=== PATIENT | female | born 1960 | race Caucasian/White ===

== ENCOUNTER 2016-10-07 13:11 | Inpatient (IN) | payer MEDICAID ==
[~2016-10-07] VITALS: Ht 162.6 cm; Wt 81.9 kg
[~2016-10-07 13:11] MED LIST: ALBU8HFA4 IH; MELO-273 PO; OLAN7.5T2 PO
[2016-10-07 14:35] VITALS: BP 109/74
[2016-10-07] MEDS ORDERED: LORazepam 2 MG TABLET PO PRN (14:45)
[2016-10-07] MEDS ORDERED: HALOPERIDOL 5 MG TABLET PO PRN (14:45)
[2016-10-07] MEDS ORDERED: ZOLPIDEM TARTRATE 10 MG TABLET PO PRN (14:45)
[2016-10-07 16:14] VITALS: BP 116/70
[2016-10-07] MEDS ORDERED: RisperiDONE 2 MG TABLET PO SCH (17:00)
[2016-10-07] MEDS: NICOTINE 21 MG/24 HOUR PATCH TD SCH (18:03)
[2016-10-07] MEDS ORDERED: IBUPROFEN 400 MG TABLET PO PRN (19:15)
[2016-10-07] MEDS: OLANZapine 7.5 MG TABLET PO SCH (21:15)
[2016-10-08] MEDS ORDERED: -PHARMACY VACCINE NOTE- MISC ONE ×2 (02:15)
[2016-10-08 04:55] VITALS: BP 112/67
[2016-10-08 08:31] LABS: ALANINE AMINOTRANSFERASE 72 U/L (12-78); ALBUMIN 3.6 g/dL (3.4-5.0); ANION GAP 8 mmol/L (8-16); ASPARTATE AMINOTRANSFERASE 47 U/L (15-37); BILIRUBIN,TOTAL 0.5 mg/dL (0.1-1.0); CALCIUM, TOTAL 9.3 mg/dL (8.8-10.5); CARBON DIOXIDE 30 mmol/L (22-29); CHLORIDE 107 mmol/L (98-107); CREATININE 0.87 mg/dL (0.60-1.30); GLOMERULAR FILTR. RATE CALC > 60 mL/min (>60); POTASSIUM 4.3 mmol/L (3.5-5.1); SODIUM SERUM 145 mmol/L (136-145); TOTAL PROTEIN, SERUM 7.5 g/dL (6.4-8.2); UREA NITROGEN, BLOOD 12 mg/dL (7-18)
[2016-10-08] MEDS: NICOTINE 21 MG/24 HOUR PATCH TD SCH (08:31)
[2016-10-08 08:36] LABS: BASOPHILS % (AUTO) 0.9 % (0.0-2.0); EOSINOPHILS % (AUTO) 2.4 % (1.0-6.0); HEMATOCRIT 48.3 % (36-46); HEMOGLOBIN 15.3 g/dL (12.0-16.0); LYMPHOCYTES % (AUTO) 32.7 % (22.0-44.0); MEAN CORPUSCULAR HEMOGLOBIN 30.6 pg (26.0-34.0); MEAN CORPUSCULAR HGB CONC 31.7 G/dL (31.0-37.0); MEAN CORPUSCULAR VOLUME 97 fL (80-100); MONOCYTES # (AUTO) 0.9 K/uL (0.1-1.0); MONOCYTES % (AUTO) 7.4 % (2.0-9.0); NEUTROPHILS % (AUTO) 56.6 % (40.0-70.0); PLATELET COUNT (AUTO) 294 K/uL (150-450); RED CELL DISTRIBUTION WIDTH 14.4 % (11.5-14.5); WHITE BLOOD COUNT (AUTO) 12.4 K/uL (4.5-11.0)
[2016-10-08 08:41] LABS: APPEARANCE,URINE CLEAR (CLEAR); GLUCOSE, URINE (UA) NEGATIVE (NEGATIVE); KETONES,URINE NEGATIVE (NEGATIVE); LEUKOCYTE ESTERASE ,URINE NEGATIVE (NEGATIVE); OCCULT BLOOD,URINE NEGATIVE (NEGATIVE); PH,URINE 6.5 (5.0-8.0); PROTEIN,URINE NEGATIVE (NEGATIVE)
[2016-10-08 08:42] LABS: ADD UA MICROSCOPIC NO
[2016-10-08] MEDS ORDERED: RisperiDONE 2 MG TABLET PO SCH (09:00)
[2016-10-08 09:30] VITALS: BP 100/68
[2016-10-08 17:50] VITALS: BP 108/76
[2016-10-08] MEDS: OLANZapine 7.5 MG TABLET PO SCH (20:22)
[2016-10-09 01:15] VITALS: BP 109/66
[2016-10-09 08:31] VITALS: BP 108/72
[2016-10-09] MEDS: NICOTINE 21 MG/24 HOUR PATCH TD SCH (08:33)
[2016-10-09 16:00] VITALS: BP 109/62
[2016-10-09] MEDS: OLANZapine 7.5 MG TABLET PO SCH (21:27)
[2016-10-10 05:20] VITALS: BP 112/69
[2016-10-10] MEDS: NICOTINE 21 MG/24 HOUR PATCH TD SCH (09:48)
[2016-10-10 13:30] VITALS: BP 120/72
[2016-10-10 16:00] VITALS: BP 100/66
[2016-10-10 16:35] VITALS: BP 100/66
[2016-10-10] MEDS: OLANZapine 7.5 MG TABLET PO SCH (20:28)
[2016-10-11 06:58] VITALS: BP 107/67
[2016-10-11 08:08] VITALS: BP 116/62
[2016-10-11] MEDS: NICOTINE 21 MG/24 HOUR PATCH TD SCH (08:15)
[2016-10-11] MEDS ORDERED: DOCUSATE SODIUM 100 MG CAPSULE PO SCH (09:00)
[2016-10-11 11:58] VITALS: BP 110/68
[2016-10-11 16:00] VITALS: BP 111/71
[2016-10-11] MEDS: OLANZapine 7.5 MG TABLET PO SCH (20:31)
[2016-10-11] MEDS: LevETIRAcetam 250 MG TABLET PO SCH ×2 (21:06→21:53)
[2016-10-12 04:41] VITALS: BP 102/68
[2016-10-12] MEDS ORDERED: DSS100 PO (04:41)
[2016-10-12] MEDS ORDERED: LEVE250T55 PO (04:41)
[2016-10-12] MEDS ORDERED: OLAN7.5T2 PO (04:41)
== END 2016-10-12 07:05 | disposition home or self-care (01) | DRG 750 ==
LOC: B2S 15:23 → EDSTATUS 15:38 → B2S 10-08 17:43
PROVIDERS: ADMIT Psychiatry & Neurology Psychiatry; ATTEND Psychiatry & Neurology Psychiatry
DX: F25.9 Schizoaffective disorder, unspecified (principal); R56.9 Unspecified convulsions; R45.851 Suicidal ideations; I10 Essential (primary) hypertension; J45.909 Unspecified asthma, uncomplicated; B18.2 Chronic viral hepatitis C; K21.9 Gastro-esophageal reflux disease without esophagitis; F10.10 Alcohol abuse, uncomplicated; F19.10 Other psychoactive substance abuse, uncomplicated; F17.200 Nicotine dependence, unspecified, uncomplicated

== ENCOUNTER 2016-10-24 21:36 | Inpatient (IN) | payer MEDICAID, OTHER ==
[~2016-10-24] VITALS: Ht 160 cm; Wt 84.4 kg
[~2016-10-24 21:36] MED LIST changes: -ALBU8HFA4 IH; +DSS100 PO; +LEVE250T55 PO; -MELO-273 PO
[2016-10-24] MEDS ORDERED: HALOPERIDOL 5 MG TABLET PO ONE (23:00)
[2016-10-24] MEDS ORDERED: LORazepam 2 MG TABLET PO ONE (23:00)
[2016-10-24 23:09] LABS: BASOPHILS % (AUTO) 0.8 % (0.0-2.0); EOSINOPHILS % (AUTO) 3.1 % (1.0-6.0); HEMATOCRIT 45.2 % (36-46); HEMOGLOBIN 14.4 g/dL (12.0-16.0); LYMPHOCYTES # (AUTO) 5.8 K/uL (1.0-4.8); LYMPHOCYTES % (AUTO) 34.3 % (22.0-44.0); MEAN CORPUSCULAR HEMOGLOBIN 30.5 pg (26.0-34.0); MEAN CORPUSCULAR HGB CONC 31.8 G/dL (31.0-37.0); MEAN CORPUSCULAR VOLUME 96 fL (80-100); MONOCYTES # (AUTO) 1.1 K/uL (0.1-1.0); MONOCYTES % (AUTO) 6.7 % (2.0-9.0); NEUTROPHILS # (AUTO) 9.2 K/uL (1.8-7.7); NEUTROPHILS % (AUTO) 55.1 % (40.0-70.0); PLATELET COUNT (AUTO) 306 K/uL (150-450); RED BLOOD CELL COUNT(AUTO) 4.72 MIL/uL (4.00-5.20); RED CELL DISTRIBUTION WIDTH 14.3 % (11.5-14.5); WHITE BLOOD COUNT (AUTO) 16.8 K/uL (4.5-11.0)
[2016-10-24 23:19] LABS: ANION GAP 12 mmol/L (8-16); CALCIUM, TOTAL 9.4 mg/dL (8.8-10.5); CARBON DIOXIDE 26 mmol/L (22-29); CHLORIDE 106 mmol/L (98-107); CREATININE 0.85 mg/dL (0.60-1.30); GLOMERULAR FILTR. RATE CALC > 60 mL/min (>60); POTASSIUM 3.8 mmol/L (3.5-5.1); SODIUM SERUM 144 mmol/L (136-145); UREA NITROGEN, BLOOD 11 mg/dL (7-18)
[2016-10-24 23:29] LABS: ALANINE AMINOTRANSFERASE 76 U/L (12-78); ALBUMIN 3.7 g/dL (3.4-5.0); ASPARTATE AMINOTRANSFERASE 64 U/L (15-37); BILIRUBIN,TOTAL 0.3 mg/dL (0.1-1.0); TOTAL PROTEIN, SERUM 7.5 g/dL (6.4-8.2)
[2016-10-25] MEDS ORDERED: ZOLPIDEM TARTRATE 10 MG TABLET PO PRN (00:45)
[2016-10-25] MEDS ORDERED: LORazepam 2 MG TABLET PO PRN (00:45)
[2016-10-25] MEDS ORDERED: HALOPERIDOL 5 MG TABLET PO PRN (00:45)
[2016-10-25 05:52] LABS: APPEARANCE,URINE CLEAR (CLEAR); GLUCOSE, URINE (UA) NEGATIVE (NEGATIVE); KETONES,URINE NEGATIVE (NEGATIVE); LEUKOCYTE ESTERASE ,URINE NEGATIVE (NEGATIVE); OCCULT BLOOD,URINE NEGATIVE (NEGATIVE); PROTEIN,URINE NEGATIVE (NEGATIVE)
[2016-10-25 06:15] LABS: RBC,URINE None Seen /HPF (0-2); SQUAMOUS EPITHELIAL CELL,UR Rare /LPF (None Seen); WBC,URINE None Seen /HPF (0-5)
[2016-10-25 06:46] LABS: CHOL/HDL RATIO 2.4 (3.9-5.7)
[2016-10-25 09:45] VITALS: BP 115/75
[2016-10-25] MEDS: NICOTINE 21 MG/24 HOUR PATCH TD SCH (11:01)
[2016-10-25 16:17] VITALS: BP 123/81
[2016-10-26 06:00] VITALS: BP 116/78
[2016-10-26] MEDS: NICOTINE 21 MG/24 HOUR PATCH TD SCH (08:32)
[2016-10-26 08:45] VITALS: BP 120/80
[2016-10-26 16:00] VITALS: BP 115/78
[2016-10-26] MEDS ORDERED: ACETAMINOPHEN 325 MG TABLET PO PRN (19:45)
[2016-10-26] MEDS: OLANZapine 7.5 MG TABLET PO SCH (20:45)
[2016-10-27 06:31] VITALS: BP 108/66
[2016-10-27 08:35] LABS: BASOPHILS % (AUTO) 0.7 % (0.0-2.0); EOSINOPHILS % (AUTO) 4.8 % (1.0-6.0); HEMATOCRIT 45.5 % (36-46); HEMOGLOBIN 14.4 g/dL (12.0-16.0); LYMPHOCYTES # (AUTO) 3.1 K/uL (1.0-4.8); LYMPHOCYTES % (AUTO) 33.5 % (22.0-44.0); MEAN CORPUSCULAR HEMOGLOBIN 30.4 pg (26.0-34.0); MEAN CORPUSCULAR HGB CONC 31.7 G/dL (31.0-37.0); MEAN CORPUSCULAR VOLUME 96 fL (80-100); MONOCYTES # (AUTO) 0.5 K/uL (0.1-1.0); MONOCYTES % (AUTO) 5.7 % (2.0-9.0); NEUTROPHILS # (AUTO) 5.1 K/uL (1.8-7.7); NEUTROPHILS % (AUTO) 55.3 % (40.0-70.0); PLATELET COUNT (AUTO) 282 K/uL (150-450); RED BLOOD CELL COUNT(AUTO) 4.74 MIL/uL (4.00-5.20); RED CELL DISTRIBUTION WIDTH 13.9 % (11.5-14.5); WHITE BLOOD COUNT (AUTO) 9.2 K/uL (4.5-11.0)
[2016-10-27 08:41] VITALS: BP 102/60
[2016-10-27 08:47] LABS: HEMOGLOBIN A1C 5.6 % (4.5-6.2)
[2016-10-27] MEDS: DOCUSATE SODIUM 100 MG CAPSULE PO SCH (08:50)
[2016-10-27] MEDS: NICOTINE 21 MG/24 HOUR PATCH TD SCH (08:50)
[2016-10-27] MEDS: LevETIRAcetam 250 MG TABLET PO SCH ×4 (08:50→17:05)
[2016-10-27 09:31] LABS: CHOL/HDL RATIO 2.2 (3.9-5.7); THYROID STIMULATING HORMONE 2.25 uIU/mL (0.36-3.74)
[2016-10-27 16:32] VITALS: BP 116/79
[2016-10-27] MEDS: OLANZapine 7.5 MG TABLET PO SCH (20:17)
[2016-10-28 03:21] VITALS: BP 114/77
[2016-10-28 08:23] VITALS: BP 109/71
[2016-10-28] MEDS: DOCUSATE SODIUM 100 MG CAPSULE PO SCH (08:47)
[2016-10-28] MEDS: NICOTINE 21 MG/24 HOUR PATCH TD SCH (08:48)
[2016-10-28] MEDS ORDERED: MULTIVITAMINS, THERAPEUTIC TABLET PO SCH (09:00)
[2016-10-28] MEDS: LevETIRAcetam 250 MG TABLET PO SCH (09:00)
== END 2016-10-28 17:50 | disposition home or self-care (01) | DRG 750 ==
LOC: EMS 21:37 → B2S 10-25 07:45
PROVIDERS: ADMIT Psychiatry & Neurology Child & Adolescent Psychiatry; ATTEND Psychiatry & Neurology Psychiatry
DX: F20.0 Paranoid schizophrenia (principal); R56.9 Unspecified convulsions; R45.851 Suicidal ideations; I10 Essential (primary) hypertension; J45.909 Unspecified asthma, uncomplicated; B18.2 Chronic viral hepatitis C; K21.9 Gastro-esophageal reflux disease without esophagitis; K59.00 Constipation, unspecified; F10.129 Alcohol abuse with intoxication, unspecified; Y90.5 Blood alcohol level of 100-119 mg/100 ml; F19.10 Other psychoactive substance abuse, uncomplicated; Z88.8 Allergy status to other drugs, medicaments and biological substances
CPT/HCPCS: 83036; 84443; 87081; 99285; G0480

== ENCOUNTER 2017-04-22 10:14 | Inpatient (IN) | payer MEDICAID, OTHER ==
[~2017-04-22] VITALS: Ht 162.6 cm; Wt 77.8 kg
[~2017-04-22 10:14] MED LIST changes: -LEVE250T55 PO
[2017-04-22] MEDS ORDERED: LORazepam 2 MG/ML VIAL IM ONE (10:30)
[2017-04-22] MEDS ORDERED: DiphenhydrAMINE HCL 50 MG/ML VIAL IM ONE (10:30)
[2017-04-22] MEDS ORDERED: HALOPERIDOL LACTATE 5 MG/ML VIAL IM ONE (10:30)
[2017-04-22 11:02] LABS: BASOPHILS % (AUTO) 3.2 % (0.0-2.0); EOSINOPHILS % (AUTO) 1.5 % (1.0-6.0); HEMATOCRIT 47.2 % (36-46); LYMPHOCYTES # (AUTO) 3.6 K/uL (1.0-4.8); LYMPHOCYTES % (AUTO) 32.9 % (22.0-44.0); MEAN CORPUSCULAR HEMOGLOBIN 32.1 pg (26.0-34.0); MEAN CORPUSCULAR VOLUME 94 fL (80-100); MONOCYTES # (AUTO) 0.9 K/uL (0.1-1.0); NEUTROPHILS % (AUTO) 54.4 % (40.0-70.0); PLATELET COUNT (AUTO) 260 K/uL (150-450); RED BLOOD CELL COUNT(AUTO) 5.01 MIL/uL (4.00-5.20)
[2017-04-22 11:15] LABS: ANION GAP 10 mmol/L (8-16); CALCIUM, TOTAL 9.4 mg/dL (8.8-10.5); CARBON DIOXIDE 27 mmol/L (22-29); CHLORIDE 102 mmol/L (98-107); GLOMERULAR FILTR. RATE CALC > 60 mL/min (>60); POTASSIUM 3.4 mmol/L (3.5-5.1); SODIUM SERUM 139 mmol/L (136-145); UREA NITROGEN, BLOOD 10 mg/dL (7-18)
[2017-04-22 11:20] LABS: ALANINE AMINOTRANSFERASE 46 U/L (12-78); ALBUMIN 3.9 g/dL (3.4-5.0); ASPARTATE AMINOTRANSFERASE 44 U/L (15-37); BILIRUBIN,TOTAL 0.5 mg/dL (0.1-1.0); TOTAL PROTEIN, SERUM 7.7 g/dL (6.4-8.2)
[2017-04-22] MEDS ORDERED: ZOLPIDEM TARTRATE 10 MG TABLET PO PRN (13:00)
[2017-04-22] MEDS ORDERED: HALOPERIDOL 5 MG TABLET PO PRN (13:00)
[2017-04-22 16:03] VITALS: BP 106/71
[2017-04-22] MEDS ORDERED: INFLUENZA VIRUS VACCINE QVS 2017-18 (3YR+)/PF 60 MCG/0.5 ML SYRINGE IM ONE (16:30)
[2017-04-22] MEDS ORDERED: POTASSIUM CHLORIDE 20 MEQ ER TABLET PO ONE (18:15)
[2017-04-22] MEDS: OLANZapine 7.5 MG TABLET PO SCH (20:03)
[2017-04-23] MEDS ORDERED: ACETAMINOPHEN 325 MG TABLET PO PRN (12:00)
[2017-04-23] MEDS ORDERED: POTASSIUM CHLORIDE 10 MEQ ER TABLET PO ONE (12:00)
[2017-04-23 16:37] VITALS: BP 95/54
[2017-04-23] MEDS: OLANZapine 7.5 MG TABLET PO SCH (20:01)
[2017-04-24 06:53] VITALS: BP 103/61
[2017-04-24 09:03] LABS: ALANINE AMINOTRANSFERASE 45 U/L (12-78); ALBUMIN 3.6 g/dL (3.4-5.0); ANION GAP 4 mmol/L (8-16); ASPARTATE AMINOTRANSFERASE 40 U/L (15-37); BILIRUBIN,TOTAL 0.6 mg/dL (0.1-1.0); CALCIUM, TOTAL 9.3 mg/dL (8.8-10.5); CARBON DIOXIDE 32 mmol/L (22-29); CHLORIDE 107 mmol/L (98-107); CHOL/HDL RATIO 2.6 (3.9-5.7); GLOMERULAR FILTR. RATE CALC > 60 mL/min (>60); POTASSIUM 4.1 mmol/L (3.5-5.1); SODIUM SERUM 143 mmol/L (136-145); THYROID STIMULATING HORMONE 1.56 uIU/mL (0.36-3.74); TOTAL PROTEIN, SERUM 7.7 g/dL (6.4-8.2); UREA NITROGEN, BLOOD 15 mg/dL (7-18)
[2017-04-24 16:22] VITALS: BP 104/63
[2017-04-24] MEDS: OLANZapine 7.5 MG TABLET PO SCH (20:13)
[2017-04-25] MEDS: LORazepam 2 MG TABLET PO PRN (08:26)
[2017-04-25 08:28] VITALS: BP 103/60
[2017-04-25 16:33] VITALS: BP 111/71
[2017-04-25] MEDS: OLANZapine 7.5 MG TABLET PO SCH (20:34)
[2017-04-26 06:18] VITALS: BP 132/66
[2017-04-26 08:34] VITALS: BP 104/74
[2017-04-26] MEDS: LORazepam 2 MG TABLET PO PRN (08:58)
== END 2017-04-26 13:15 | disposition home or self-care (01) | DRG 750 ==
LOC: EEVIPCON 10:16 → EMS 10:16 → B3A 13:28
DX: F20.0 Paranoid schizophrenia (principal); F25.9 Schizoaffective disorder, unspecified; I10 Essential (primary) hypertension; B18.2 Chronic viral hepatitis C; E87.6 Hypokalemia; F10.10 Alcohol abuse, uncomplicated; F17.210 Nicotine dependence, cigarettes, uncomplicated; J44.9 Chronic obstructive pulmonary disease, unspecified; G40.909 Epilepsy, unspecified, not intractable, without status epilepticus; Z79.899 Other long term (current) drug therapy; K21.9 Gastro-esophageal reflux disease without esophagitis; K59.09 Other constipation; Z88.8 Allergy status to other drugs, medicaments and biological substances; M19.90 Unspecified osteoarthritis, unspecified site; Z71.41 Alcohol abuse counseling and surveillance of alcoholic; Z71.51 Drug abuse counseling and surveillance of drug abuser; Z71.6 Tobacco abuse counseling
CPT/HCPCS: 83036; 84443; 90471; 96372; 99291; G0480; J1200; J1630; J2060